=== PATIENT | female | born 1940 | race Caucasian/White ===

== ENCOUNTER 2025-07-26 18:47 | Emergency (ER) | payer MEDICARE ==
[2025-07-26] MEDS ORDERED: Ondansetron PF 4 MG/2 ML Vial ONE (19:52)
[2025-07-26 20:07] LABS: #Basophils 0.03 10x3/uL (0.0-0.2); #Eosinophils Less than 0.03 10x3/uL (0.0-0.5); #Monocytes 0.75 10x3/uL (0.0-1.1); #Neutrophils 12.39 10x3/uL (1.5-8.4); %Basophils 0.2 % (0.0-2.0); %Eosinophils 0.1 % (0.0-6.0); %Lymphocytes 4.6 % (18.0-47.0); %Monocytes 5.4 % (0.0-10.0); %Neutrophils 89.1 % (40.0-75.0); Hematocrit 40.3 % (34.9-44.5); Hemoglobin 13.4 g/dL (12.0-15.5); Mean Corpuscular Hemoglobin 28.9 pg (27.0-33.0); Mean Corpuscular Volume 87.0 fL (81.6-98.3); Platelet Count 275 10x3/uL (150-450); Red Blood Cell (RBC) Count 4.63 10x6/uL (3.90-5.03); White Blood Cell (WBC) Count 13.90 10x3/uL (3.5-10.5)
[2025-07-26 20:21] LABS: INR-International Normal Ratio 1.0; Prothrombin Time 10.9 sec (9.5-12.1)
[2025-07-26 20:25] LABS: ALT (SGPT) 19 U/L (Less than 34); AST (SGOT) 24 U/L (11-34); Albumin 3.8 g/dL (3.1-4.5); Alkaline Phosphatase 125 U/L (40-110); Anion Gap 17 mmol/L (10-20); BUN (Urea Nitrogen) 27 mg/dL (9.8-20.1); Bilirubin, Total 0.4 mg/dL (0.3-1.2); Calc. Creatinine Clearance 0 mL/min (70-130); Calcium 9.8 mg/dL (7.8-10.44); Carbon Dioxide 26 mmol/L (23-31); Chloride 99 mmol/L (98-107); Globulin 3.9 g/dL (2.4-3.5); Glucose 165 mg/dL (83-110); Potassium 4.2 mmol/L (3.5-5.1); Sodium 138 mmol/L (136-145)
[2025-07-26 20:31] LABS: Troponin I Less than 0.010 ng/mL (< 0.028)
[2025-07-26 21:24] LABS: Glucose, Urine (Dipstick) Normal (Negative); Leukocyte 100 (Negative); Protein, Urine (Dipstick) Negative (Neg-Trace); Specific Gravity, Urine 1.010 (1.005-1.030)
[2025-07-26 21:37] LABS: Bacteria/HPF 4+ HPF (None Seen); CAUTI Indications for Culture Dysuria,urgency,freq; RBC/HPF 0-3 HPF (0-3); WBC/HPF 0-3 HPF (0-3)
[2025-07-26 21:39] LABS: Urine Culture Reflex No No
== END 2025-07-26 21:59 | disposition short-term general hospital (02) ==
LOC: CSHERS 18:47
DX: S72.001A Fracture of unspecified part of neck of right femur, initial encounter for closed fracture (principal); I12.9 Hypertensive chronic kidney disease with stage 1 through stage 4 chronic kidney disease, or unspecified chronic kidney disease; N18.30 Chronic kidney disease, stage 3 unspecified; I25.10 Atherosclerotic heart disease of native coronary artery without angina pectoris; R54 Age-related physical debility; Z79.82 Long term (current) use of aspirin; Z79.899 Other long term (current) drug therapy; W19.XXXA Unspecified fall, initial encounter
CPT/HCPCS: 51701; 71045; 80053; 81001; 84484; 85025; 85610; 93005; 94760; 96374; 96375

== ENCOUNTER 2025-09-04 14:43 | Outpatient (CLI) | payer MEDICARE | END 2025-09-04 14:44 | disposition home or self-care (01) | LOC: CSHCT 14:43 | PROVIDERS: ATTEND Neurological Surgery | DX: G91.9 Hydrocephalus, unspecified (principal); G93.89 Other specified disorders of brain | CPT/HCPCS: 70450 ==